=== PATIENT | female | born 1980 | race African-American/Black ===

== ENCOUNTER 2017-10-10 16:46 | Inpatient (IN) ==
[2017-10-10] MEDS ORDERED: DIPH/TET/ACEL PERT BOOSTER VACCINE 0.5 ML VIAL IM ONE ×2 (16:52→18:14)
[2017-10-10] MEDS ORDERED: SODIUM CHLORIDE 0.9% 1,000 ML IV STA ×2 (16:52→18:05)
[2017-10-10] MEDS ORDERED: HYDROmorphone 2 MG/1 ML VIAL IV STA (16:52)
[2017-10-10] MEDS ORDERED: ONDANSETRON 4 MG/2 ML VIAL IV STA (16:53)
[2017-10-10 17:13] LABS: Basophils # 0.1 10*3/uL (0.0-0.2); Basophils % 0.5 % (0.0-0.8); Eosinophils # 0.2 10*3/uL (0.0-0.87); Eosinophils % 1.4 % (0.00-10.9); Hemoglobin 8.5 GM/DL (12.0-16.0); Immature Granulocytes % 0.7 %; Mean Corpuscular HGB Conc 28.6 GM/DL (32-36); Mean Corpuscular Hemoglobin 22 PG (27-34); Mean Corpuscular Volume 75.8 FL (87-102); Mean Platelet Volume 9.5 FL (9.6-12.0); Monocytes # 0.9 10*3/uL (0.11-0.8); Monocytes % 6.2 % (1.7-12.7); Neutrophils # 9.4 10*3/uL (1.4-7.4); Neutrophils % 69.2 % (38.7-73.9); Platelet Count 385 T/CUMM (130-400); Red Blood Count 3.92 MC/CUMM (3.8-5.5); Red Cell Distribution Width 17.3 % (9.3-17.3); White Blood Count 13.6 T/CUMM (4-12)
[2017-10-10 17:14] LABS: Hematocrit 29.7 VOL% (35.7-47.0)
[2017-10-10 17:23] LABS: PT Patient Result 10.5 SECS; Partial Thromboplastin Time < 21.0 SECS (0-40)
[2017-10-10 17:43] LABS: Alanine Aminotransferase 16 U/L (13-56); Alkaline Phosphatase 68 U/L (45-117); Amylase 105 U/L (25-115); Aspartate Amino Transferase 16 U/L (0-37); Bilirubin,Total < 0.39 MG/DL (0.2-1.0); Blood Urea Nitrogen 16 MG/DL (7-18); Calcium 8.7 MG/DL (8.5-10.1); Glucose 166 MG/DL (74-106); Osmolality,Calculated 285.3 MOS/KG (273-304); Potassium 3.7 MMOL/L (3.5-5.1); Sodium 141 MMOL/L (136-145); Total Protein 8.4 G/DL (6.4-8.3)
[2017-10-10] MEDS ORDERED: ACETAMINOPHEN 325 MG TABLET PO PRN (17:43)
[2017-10-10] MEDS ORDERED: ONDANSETRON 4 MG/2 ML VIAL IV PRN (17:43)
[2017-10-10 17:45] LABS: Lactic Acid 4.9 MMOL/L (0.4-2.0)
[2017-10-10] MEDS ORDERED: ceFAZolin 1,000 MG VIAL ONE (18:14)
[2017-10-10] MEDS ORDERED: HYDROmorphone 2 MG/1 ML VIAL ONE (18:14)
[2017-10-10] MEDS ORDERED: ONDANSETRON 4 MG/2 ML VIAL ONE (18:14)
[2017-10-10] MEDS: LACTATED RINGERS 1,000 ML IV SCH (19:10)
[2017-10-10 19:24] LABS: Apearance,Urine CLEAR (Clear); Bilirubin,Urine Negative (Negative); Blood, Urine Negative (Negative); Glucose,Urine (UA) 50 mg/dL (Negative); Hyaline Casts,Urine 2 /LPF (0-3); Ketones,Urine Negative (Negative); Mucus,Urine Occasional /LPF (Occasional); Nitrite,Urine Negative (Negative); Protein,Urine Negative; RBC,Urine 3 /HPF (0-4); Squamous Epithelial Cell,Urine Occasional /HPF (0-10); Urine Color Yellow (Yellow); Urine Specific Gravity 1.036 (1.001-1.035); Urine Urobilinogen < 2.0 EU/DL (0.2-1.0); WBC,Urine 2 /HPF (0-6)
[2017-10-10 19:27] LABS: Barbiturates Screen,Urine Negative (Negative); Benzodiazepines Screen,Urine Negative (Negative); Cannabinoid Screen,Urine Negative (Negative); Opiate Screen,Urine Negative (Negative); Phencyclidine Screen,Urine Negative (Negative)
[2017-10-10 22:16] LABS: Lactic Acid 2.9 MMOL/L (0.4-2.0)
[2017-10-10] MEDS ORDERED: SODIUM CHLORIDE 0.9% 1,000 ML IV PRN (22:36)
[2017-10-10] MEDS: MORPHINE 2 MG/1 ML SYRINGE IV PRN (23:15)
[2017-10-11 06:24] LABS: Basophils % 0.2 % (0.0-0.8); Hematocrit 26.3 VOL% (35.7-47.0); Hemoglobin 8.3 GM/DL (12.0-16.0); Immature Granulocytes % 0.4 %; Immature Granulocytes Absolute 0.05 #; Lymphocytes # 1.8 10*3/uL (1.4-4.0); Mean Corpuscular HGB Conc 31.6 GM/DL (32-36); Mean Corpuscular Hemoglobin 25 PG (27-34); Mean Corpuscular Volume 78.3 FL (87-102); Mean Platelet Volume 9.3 FL (9.6-12.0); Monocytes # 1.2 10*3/uL (0.11-0.8); Monocytes % 9.8 % (1.7-12.7); Neutrophils % 74.6 % (38.7-73.9); Platelet Count 191 T/CUMM (130-400); Red Blood Count 3.36 MC/CUMM (3.8-5.5); Red Cell Distribution Width 16.7 % (9.3-17.3)
[2017-10-11] MEDS: LACTATED RINGERS 1,000 ML IV SCH ×3 (06:33→15:24)
[2017-10-11 06:58] LABS: Calcium 7.7 MG/DL (8.5-10.1); Osmolality,Calculated 277.4 MOS/KG (273-304); Potassium 3.9 MMOL/L (3.5-5.1)
[2017-10-11] MEDS: PANTOPRAZOLE 40 MG TABLET PO SCH (09:08)
[2017-10-11] MEDS: MORPHINE 2 MG/1 ML SYRINGE IV PRN (20:41)
[2017-10-12] MEDS: LACTATED RINGERS 1,000 ML IV SCH (00:29)
[2017-10-12 05:31] LABS: Basophils % 0.3 % (0.0-0.8); Eosinophils # 0.1 10*3/uL (0.0-0.87); Eosinophils % 1.2 % (0.00-10.9); Hematocrit 24.2 VOL% (35.7-47.0); Hemoglobin 7.7 GM/DL (12.0-16.0); Immature Granulocytes % 0.5 %; Immature Granulocytes Absolute 0.05 #; Lymphocytes # 1.9 10*3/uL (1.4-4.0); Lymphocytes % 17.9 % (21.3-54.2); Mean Corpuscular HGB Conc 31.8 GM/DL (32-36); Mean Corpuscular Hemoglobin 24 PG (27-34); Mean Corpuscular Volume 76.8 FL (87-102); Mean Platelet Volume 9.9 FL (9.6-12.0); Monocytes # 1.1 10*3/uL (0.11-0.8); Monocytes % 9.9 % (1.7-12.7); Neutrophils # 7.5 10*3/uL (1.4-7.4); Neutrophils % 70.2 % (38.7-73.9); Platelet Count 193 T/CUMM (130-400); Red Blood Count 3.15 MC/CUMM (3.8-5.5); Red Cell Distribution Width 17.4 % (9.3-17.3); White Blood Count 10.7 T/CUMM (4-12)
[2017-10-12] MEDS: PANTOPRAZOLE 40 MG TABLET PO SCH (10:24)
[2017-10-12] MEDS: ENOXAPARIN 30 MG/0.3 ML SYRINGE SUBCUT SCH ×2 (10:25→21:08)
[2017-10-12 16:02] LABS: Hematocrit 24.4 VOL% (35.7-47.0); Hemoglobin 7.8 GM/DL (12.0-16.0)
[2017-10-12 22:22] LABS: Hematocrit 25.6 VOL% (35.7-47.0); Hemoglobin 8.1 GM/DL (12.0-16.0)
[2017-10-13 04:07] LABS: Hemoglobin 7.9 GM/DL (12.0-16.0)
[2017-10-13] MEDS: PANTOPRAZOLE 40 MG TABLET PO SCH (09:17)
[2017-10-13] MEDS: ENOXAPARIN 30 MG/0.3 ML SYRINGE SUBCUT SCH (09:17)
[2017-10-13 16:58] VITALS: BP 109/60
== END 2017-10-13 17:45 | disposition home or self-care (01) | DRG 964 ==
LOC: EDUNIT# → EDBD → N.EDINP 16:46 → N.ED 16:46 → N.3E 19:02 → N.ICU 19:39 → N.3E 10-11 18:57
PROVIDERS: ADMIT Surgery; ATTEND Surgery

== ENCOUNTER 2018-03-24 18:19 | Observation (INO) ==
[2018-03-24] MEDS ORDERED: LACTATED RINGERS 1,000 ML IV ONE (18:46)
[2018-03-24 19:34] LABS: Eosinophils # 0.1 10*3/uL (0.0-0.87); Immature Granulocytes % 0.4 %; Immature Granulocytes Absolute 0.04 #; Mean Corpuscular Hemoglobin 19 PG (27-34); Mean Platelet Volume 10.3 FL (9.6-12.0)
[2018-03-24 19:51] LABS: PT Patient Result 10.6 SECS
[2018-03-24 19:55] LABS: Calcium 8.3 MG/DL (8.5-10.1)
[2018-03-24 19:56] LABS: Osmolality,Calculated 277.4 MOS/KG (273-304); Potassium 3.5 MMOL/L (3.5-5.1)
[2018-03-24 19:59] LABS: Troponin I Only < 0.015 NG/ML (0.00-0.045)
[2018-03-24 20:03] LABS: Basophils % 0.3 % (0.0-0.8); Hematocrit 21.6 VOL% (35.7-47.0); Lymphocytes # 2.6 10*3/uL (1.4-4.0); Lymphocytes % 24.6 % (21.3-54.2); Mean Corpuscular HGB Conc 26.9 GM/DL (32-36); Mean Corpuscular Volume 70.1 FL (87-102); Monocytes # 0.7 10*3/uL (0.11-0.8); Monocytes % 6.5 % (1.7-12.7); Neutrophils # 7.1 10*3/uL (1.4-7.4); Neutrophils % 67.2 % (38.7-73.9); Platelet Count 292 T/CUMM (130-400); Red Blood Count 3.08 MC/CUMM (3.8-5.5); Red Cell Distribution Width 19.5 % (9.3-17.3); White Blood Count 10.5 T/CUMM (4-12)
[2018-03-24 20:07] LABS: Hemoglobin 5.8 GM/DL (12.0-16.0)
[2018-03-24] MEDS ORDERED: SODIUM CHLORIDE 0.9% 1,000 ML IV PRN (20:11)
[2018-03-24 20:35] LABS: % Iron Saturation 2.1 % (18-50)
[2018-03-24 20:47] LABS: Hypochromasia 2+; Microcytosis 2+; Target Cells Few
[2018-03-24 20:48] LABS: Ovalocytes 1+; Platelet Estimate Normal
[2018-03-24 20:50] LABS: Anisocytosis 2+; Polychromasia Few
[2018-03-25] MEDS ORDERED: ACETAMINOPHEN 325 MG TABLET PO PRN (00:14)
[2018-03-25 05:31] LABS: Basophils % 0.5 % (0.0-0.8); Eosinophils % 1.5 % (0.00-10.9); Hematocrit 27.4 VOL% (35.7-47.0); Hemoglobin 7.9 GM/DL (12.0-16.0); Immature Granulocytes % 0.2 %; Lymphocytes % 25.6 % (21.3-54.2); Mean Corpuscular HGB Conc 28.8 GM/DL (32-36); Mean Corpuscular Hemoglobin 22 PG (27-34); Mean Corpuscular Volume 75.5 FL (87-102); Mean Platelet Volume 9.9 FL (9.6-12.0); Monocytes % 7.5 % (1.7-12.7); Neutrophils % 64.7 % (38.7-73.9); Platelet Count 378 T/CUMM (130-400); Red Blood Count 3.63 MC/CUMM (3.8-5.5); Red Cell Distribution Width 20.5 % (9.3-17.3); White Blood Count 8.8 T/CUMM (4-12)
[2018-03-25 05:32] LABS: Eosinophils # 0.1 10*3/uL (0.0-0.87); Hematocrit 27.2 VOL% (35.7-47.0); Immature Granulocytes Absolute 0.02 #; Lymphocytes # 2.3 10*3/uL (1.4-4.0); Monocytes # 0.7 10*3/uL (0.11-0.8); Neutrophils # 5.7 10*3/uL (1.4-7.4)
[2018-03-25 05:50] LABS: Albumin 3.2 G/DL (3.4-5.0); Bilirubin,Total 1.2 MG/DL (0.2-1.0); Calcium 8.2 MG/DL (8.5-10.1); Total Protein 7.6 G/DL (6.4-8.3)
[2018-03-25 05:51] LABS: Osmolality,Calculated 280.1 MOS/KG (273-304); Potassium 3.5 MMOL/L (3.5-5.1)
[2018-03-25 06:41] LABS: Hypochromasia 1+
[2018-03-25 06:42] LABS: Microcytosis 2+; Ovalocytes Slight; Platelet Estimate Normal
[2018-03-25 07:52] VITALS: BP 107/65
[2018-03-25] MEDS ORDERED: IRON SUCROSE 300 MG in SODIUM CHLORIDE 0.9% 100 ML IV ONE (08:00)
== END 2018-03-25 11:55 | disposition home or self-care (01) ==
LOC: N.ED 18:19 → N.EDINP 18:19 → N.2E 03-25 01:42
PROVIDERS: ADMIT Internal Medicine; ATTEND Internal Medicine